=== PATIENT | male | born 1980 | race African-American/Black ===

== ENCOUNTER 2018-11-04 05:23 | Emergency (ER) | payer SELFPAY ==
[~2018-11-04] VITALS: Ht 185.4 cm; Wt 92.3 kg
[2018-11-04 05:25] VITALS: BP 157/78; PULSE 67; RESP 16; Ht 185.4 cm; Wt 92.3 kg
[2018-11-04] MEDS ORDERED: ACET325T33 PO (06:12)
--- NOTE | 2018-11-04 06:33 | ERD ---
ER Documentation Chief Complaint Chief Complaint LT EYE PAIN WITH BLURRED VISION S/P BAX FALLING ON FACE, FACIAL SWELLING HPI 38-year-old male presenting with pain to his left eye. Patient states that this morning at work a heavy box fell on the left side of his face. He was wearing his glasses and that broke his glasses. States initially he had some visual deficits which have now resolved. Denies any pain in his left eye. He states he has some pain around the eye has not taken any medicine for pain. Denies other medical problems. NKDA. Surgical history denies. Social history denies ROS All systems reviewed and are negative except as per history of present illness. Medications Home Meds Active Scripts Acetaminophen* (Tylenol*) 325 Mg Tablet, 2 TAB PO Q6 PRN for PAIN AND OR ELEVATED TEMP, #20 TAB Prov:SHERRIE GUTIERREZ PA-C 11/04/18 Allergies Allergies: Coded Allergies: No Known Allergy (Unverified , 11/04/18) PMhx/Soc Medical and Surgical Hx: pt denies Medical Hx, pt denies Surgical Hx Hx Alcohol Use: No Hx Substance Use: No Smoking Status: Never smoker FmHx Family History: No diabetes, No coronary disease, No other Physical Exam Vitals Vital Signs Date Temp Pulse Resp B/P (MAP) Pulse Ox O2 O2 Flow FiO2 Time Delivery Rate 11/04/18 97.8 67 16 157/78 99 05:25 (104) Physical Exam GENERAL: The patient is well-appearing, well-nourished, in no acute distress HEENT: Atraumatic. Conjunctivae are pink. Pupils equal, round, and reactive to light. There is no scleral icterus. Tympanic membranes clear bilaterally. Oropharynx clear. CHEST: Clear to auscultation bilaterally. There are no rales, wheezes or rhonchi. HEART: Regular rate and rhythm. No murmurs, clicks, rubs or gallops. NEUROLOGIC: Alert and oriented. Cranial nerves II through XII intact. Motor strength in all 4 extremities with 5 out of 5 strength. Sensation grossly intact. Normal speech and gait. SKIN: There is no apparent rash or petechiae. The skin is warm and dry. Mild swelling noted to the lateral aspect of the left eye. Procedures/MDM MDM: 38-year-old male presenting with injury to left side of his face after a box fell on it at work. I have low suspicion for ocular injury. Patient's visual exam is within normal limits and patient has normal movement and reactive pupils. I have low suspicion for acute fracture or dislocation of the facial bones. I do not feel a CT scan is indicated and I discussed this with patient. Patient agrees. I believe patient likely sustained contusion. I have low suspicion for foreign body in the eye or corneal abrasion. Patient does not have any pain to the eyes. Patient is told symptoms change or worsen to return immediately to the ER. All questions answered at discharge Departure Diagnosis: Primary Impression: Acute head injury Condition: Stable Patient Instructions: Facial Contusion, With Wakeup Referrals: [facility] YOU HAVE RECEIVED A MEDICAL SCREENING EXAM AND THE RESULTS INDICATE THAT YOU DO NOT HAVE A CONDITION THAT REQUIRES URGENT TREATMENT IN THE EMERGENCY DEPARTMENT. FURTHER EVALUATION AND TREATMENT OF YOUR CONDITION CAN WAIT UNTIL YOU ARE SEEN IN YOUR DOCTORS OFFICE WITHIN THE NEXT 1-2 DAYS. IT IS YOUR RESPONSIBILITY TO MAKE AN APPOINTMENT FOR FOLOW-UP CARE. IF YOU HAVE A PRIMARY DOCTOR --you should call your primary doctor and schedule an appointment IF YOU DO NOT HAVE A PRIMARY DOCTOR YOU CAN CALL OUR PHYSICIAN REFERRAL HOTLINE AT IF YOU CAN NOT AFFORD TO SEE A PHYSICIAN YOU CAN CHOSE FROM THE FOLLOWING [facility] [address] [facility]. [facility] [address] [facility] [facility] [address] [facility] [facility] [address] [facility]. [facility] [address] [facility]. [facility]. [address] Additional Instructions: FOLLOW UP WITH YOUR PRIMARY CARE PHYSICIAN TOMORROW.Return to this facility if you are not improving as expected. SHERRIE GUTIERREZ PA-C Nov 04, 2018 06:33
== END 2018-11-04 06:33 | disposition home or self-care (01) ==
LOC: FTE 05:23
DX: S09.90XA Unspecified injury of head, initial encounter (principal); W20.8XXA Other cause of strike by thrown, projected or falling object, initial encounter; Y92.89 Other specified places as the place of occurrence of the external cause
CPT/HCPCS: 99282